=== PATIENT | male | born 1950 | race Caucasian/White ===

== ENCOUNTER 2022-06-14 08:57 | Outpatient (CLI) | payer MEDICARE ==
[~2022-06-14 08:57] MED LIST: LISI20TA PO; LOVA40TA75 PO
[2022-06-14] MEDS ORDERED: CYSTOGRAFIN 300 ML INFUS..BTL UR ONE (09:21)
== END 2022-06-14 20:30 | disposition home or self-care (01) ==
LOC: SRD 08:57
PROVIDERS: ATTEND Urology Pediatric Urology
DX: C61 Malignant neoplasm of prostate (principal)
CPT/HCPCS: 74430; 51600; Q9958

== ENCOUNTER 2022-06-21 08:35 | Outpatient (CLI) | payer MEDICARE, OTHER ==
[2022-06-21] MEDS ORDERED: CYSTOGRAFIN 300 ML INFUS..BTL UR ONE (08:51)
== END 2022-06-21 20:32 | disposition home or self-care (01) ==
LOC: SRD 08:35
PROVIDERS: ATTEND Urology Pediatric Urology
DX: C61 Malignant neoplasm of prostate (principal)
CPT/HCPCS: 74430; 51600; Q9958